=== PATIENT | female | born 1975 | race Caucasian/White ===

== ENCOUNTER → 2021-12-25 | Outpatient (CLI) | payer OTHER ==
[~2021-12-25] MED LIST: AUGMENTIN 875-1 EACH PO; GLUCOPHAGE1000 MG PO; HABITROL 21 MG P1 EA TOP; IBUPROFEN400 MG PO; LANTUS INS100 UTS/M1 SC; LASIX20 MG PO; LISINOPRIL-HCT1 EAC1 PO; LOPRESSOR50 MG PO; NEURONTIN400 MG PO; NOVOLOG100 UNIT/1 SC; OMEPRAZOLE40 MG PO; OXYCONTIN10 MG PO; PAXIL40 MG PO; PERCOCET 10-321 EACH PO; PRINIVIL20 MG PO; ROCEPHIN 2 GM AD2 GM IV; VANCOMYCIN HCL1.5 GM IV
== END ==
LOC: WCC 08:53
DX: L89.899 Pressure ulcer of other site, unspecified stage (principal); T23.231A Burn of second degree of multiple right fingers (nail), not including thumb, initial encounter; T23.222A Burn of second degree of single left finger (nail) except thumb, initial encounter; T31.0 Burns involving less than 10% of body surface; L89.159 Pressure ulcer of sacral region, unspecified stage; E11.628 Type 2 diabetes mellitus with other skin complications; I10 Essential (primary) hypertension; L89.93 Pressure ulcer of unspecified site, stage 3; J45.998 Other asthma; L40.59 Other psoriatic arthropathy; L89.153 Pressure ulcer of sacral region, stage 3; T87.44 Infection of amputation stump, left lower extremity; E11.40 Type 2 diabetes mellitus with diabetic neuropathy, unspecified; X58.XXXA Exposure to other specified factors, initial encounter; Y93.G3 Activity, cooking and baking; Z89.512 Acquired absence of left leg below knee; Z89.021 Acquired absence of right finger(s); Z79.4 Long term (current) use of insulin; Z88.1 Allergy status to other antibiotic agents

== ENCOUNTER → 2021-12-25 | Outpatient (CLI) | payer OTHER ==
[2021-12-25 17:51] LABS: HEMOGLOBIN 13.2 gm/dl (12.3-15.3); RED BLOOD COUNT 4.45 M/UL (4.00-5.10); WHITE BLOOD COUNT 10.3 K/UL (4.5-11.0)
[2021-12-25 18:05] LABS: BUN/CREATININE RATIO 21 (0-10)
== END ==
LOC: LAB 16:45
PROVIDERS: Nurse Practitioner Family
DX: E11.628 Type 2 diabetes mellitus with other skin complications (principal); L89.93 Pressure ulcer of unspecified site, stage 3; T23.231A Burn of second degree of multiple right fingers (nail), not including thumb, initial encounter; Z89.512 Acquired absence of left leg below knee; Z89.021 Acquired absence of right finger(s)
CPT/HCPCS: 36415; 73130; 73590; 80053; 83036; 85025; 85652; 86140

== ENCOUNTER → 2021-12-31 | Outpatient (CLI) | payer OTHER | LOC: WCC 08:26 | DX: L89.153 Pressure ulcer of sacral region, stage 3 (principal); T23.231A Burn of second degree of multiple right fingers (nail), not including thumb, initial encounter; T23.222A Burn of second degree of single left finger (nail) except thumb, initial encounter; T87.44 Infection of amputation stump, left lower extremity; E11.622 Type 2 diabetes mellitus with other skin ulcer; I10 Essential (primary) hypertension; E11.40 Type 2 diabetes mellitus with diabetic neuropathy, unspecified; J45.998 Other asthma; L40.59 Other psoriatic arthropathy; Z89.512 Acquired absence of left leg below knee; Z89.021 Acquired absence of right finger(s); Z79.4 Long term (current) use of insulin; Z88.1 Allergy status to other antibiotic agents ==

== ENCOUNTER → 2022-03-10 | Outpatient (CLI) | payer OTHER | LOC: NM 09:55 | DX: L89.90 Pressure ulcer of unspecified site, unspecified stage (principal) | CPT/HCPCS: 78315; A9503 ==

== ENCOUNTER → 2022-03-10 | Outpatient (CLI) | payer OTHER | END | disposition home or self-care (01) | LOC: WCC 08:04 | DX: E11.628 Type 2 diabetes mellitus with other skin complications (principal); L98.491 Non-pressure chronic ulcer of skin of other sites limited to breakdown of skin; L98.492 Non-pressure chronic ulcer of skin of other sites with fat layer exposed; T87.44 Infection of amputation stump, left lower extremity; L40.59 Other psoriatic arthropathy; J45.909 Unspecified asthma, uncomplicated; I10 Essential (primary) hypertension; Z89.021 Acquired absence of right finger(s); Z89.512 Acquired absence of left leg below knee; Z79.4 Long term (current) use of insulin; Z88.1 Allergy status to other antibiotic agents; Z87.891 Personal history of nicotine dependence; Z79.899 Other long term (current) drug therapy ==

== ENCOUNTER → 2022-03-19 | Outpatient (CLI) | payer OTHER | LOC: RAD 15:13 | DX: M86.9 Osteomyelitis, unspecified (principal); T87.44 Infection of amputation stump, left lower extremity | CPT/HCPCS: 73590 ==

== ENCOUNTER → 2022-03-19 | Outpatient (CLI) | payer OTHER | LOC: WCC 07:59 | DX: E11.628 Type 2 diabetes mellitus with other skin complications (principal); L89.93 Pressure ulcer of unspecified site, stage 3; T87.44 Infection of amputation stump, left lower extremity; L40.59 Other psoriatic arthropathy; I10 Essential (primary) hypertension; J45.998 Other asthma; Z89.512 Acquired absence of left leg below knee; Z89.021 Acquired absence of right finger(s); Z79.4 Long term (current) use of insulin | CPT/HCPCS: G0463 ==